=== PATIENT | female | born 1985 | race Hispanic/Latino ===

== ENCOUNTER 2022-07-20 12:47 | Emergency (ER) | payer MEDICAID ==
[2022-07-20 13:40] VITALS: BP 155/102
[2022-07-20 14:11] LABS: Basophils # (Auto) 0.1 K/mm3 (0.0-0.1); Basophils % (Auto) 1.1 % (0.0-1.8); Eosinophils # (Auto) 0.1 K/mm3 (0.0-0.4); Eosinophils % (Auto) 1.2 % (0.0-4.3); Hematocrit 37.8 % (30.3-42.9); Hemoglobin 12.4 gm/dl (10.1-14.3); Lymphocytes # (Auto) 2.5 K/mm3 (1.2-5.4); Mean Corpuscular HGB Conc 33 % (30-34); Mean Corpuscular Volume 91 fl (79-97); Monocytes # (Auto) 0.9 K/mm3 (0.0-0.8); Monocytes % (Auto) 7.9 % (0.0-7.3); Platelet Count 327 K/mm3 (140-440); Red Blood Count 4.15 M/mm3 (3.65-5.03); Red Cell Distribution Width 13.9 % (13.2-15.2)
[2022-07-20 14:28] LABS: Alanine Aminotransferase 9 units/L (7-56); Albumin 4.6 g/dL (3.9-5); Blood Urea Nitrogen 11 mg/dL (7-17); Calcium 9.6 mg/dL (8.4-10.2); Hemolysis Index 0
[2022-07-20 14:29] LABS: BUN/Creatinine Ratio 18
--- NOTE | 2022-07-20 17:04 | Ultrasound Report ---
ULTRASOUND RENAL INDICATION / CLINICAL INFORMATION: kidney stones. COMPARISON: None available. FINDINGS: RIGHT KIDNEY: Length = 10.3 cm. - Echogenicity: Normal. - Cortical Thickness: Normal. - Hydronephrosis: None. - Cyst / Mass: None. - Stones: None seen. LEFT KIDNEY: Length = 10.7 cm. - Echogenicity: Normal. - Cortical Thickness: Normal. - Hydronephrosis: None. - Cyst / Mass: None. - Stones: None seen. URINARY BLADDER: No significant abnormality. FREE FLUID: None. ADDITIONAL FINDINGS: None. IMPRESSION: 1. No significant abnormality. Signer Name: Yosi Ceja DO Signed: 07/20/2022 5:00 PM Workstation Name: [email or web address]
[2022-07-20] MEDS ORDERED: KETOROLAC 30 MG/1 ML INJ ONE (19:29)
[2022-07-20] MEDS ORDERED: KETOROLAC 30 MG/1 ML INJ IM ONE (19:42)
[2022-07-20] MEDS ORDERED: ONDANSETRON 4 MG/2 ML INJ IV ONE (23:41)
[2022-07-20] MEDS ORDERED: MORPHINE 4 MG/1 ML INJ IV ONE (23:41)
[2022-07-20] MEDS ORDERED: SODIUM CHLORIDE 0.9% 1000 ML 1,000 ML IV ONE (23:41)
[2022-07-21 01:15] LABS: Mucus,Urine 3+ /HPF
[2022-07-21 01:30] LABS: Color,Urine Yellow (Yellow)
[2022-07-21] MEDS ORDERED: KETOROLAC 30 MG/1 ML INJ IV ONE (05:26)
[2022-07-21] MEDS ORDERED: ONDANSETRON 4 MG/2 ML INJ IV ONE (05:26)
[2022-07-21] MEDS ORDERED: MORPHINE 4 MG/1 ML INJ IV ONE (05:26)
[2022-07-21] MEDS ORDERED: oxyCODONE /ACETAMINOPHEN 5-325MG TAB PO ONE (05:26)
[2022-07-21] MEDS ORDERED: levoFLOXacin 500 MG TAB PO ONE (05:28)
--- NOTE | 2022-07-21 05:49 | Emergency Department Report ---
ED Abdominal Pain HPI - General Chief Complaint: Abdominal Pain Stated Complaint: VOMITTING/KIDNEY STONES ISSUES Time Seen by Provider: 07/20/22 23:36 Source: patient Mode of arrival: Ambulatory Limitations: No Limitations - History of Present Illness Initial Comments: 37-year-old white female with no past medical history presents to the emergency department for evaluation of 1 week history of abdominal pain. She states that she is a [facility] patient and was seen at [facility] 2 or 3 days ago, had a ultrasound positive for gallstones, and was found to have kidney stones as well. She was discharged home with pain medication and made an appointment to follow-up with general surgery on this July 29. She states that she has been able to eat and drink at home, but EN makes her pain worse and the medication that she was given to treat pain has not helped effectively. She states that she has had some intermittent nausea and vomiting but denies fever, dysuria, diarrhea, or vaginal discharge. MD Complaint: abdominal pain -: Gradual, week(s) (1) Location: RUQ Radiation: none Migration to: no migration Severity scale (0 -10): 10 Quality: cramping, aching Associated Symptoms: nausea, vomiting. denies: diarrhea, fever, chills, dysuria , hematemesis, hematochezia, melena, hematuria, anorexia, syncope - Related Data LMP Date: 07/21/22 Previous Rx's Medication Instructions Recorded Last Taken Type Ciprofloxacin HCl [Ciprofloxacin 500 mg PO DAILY 3 Days #6 tab 07/21/22 Unknown Rx TAB] Ketorolac [Toradol] 10 mg PO Q6H PRN #12 tab 07/21/22 Unknown Rx Ondansetron [Zofran Odt] 4 mg PO Q8HR PRN #12 tab.rapdis 07/21/22 Unknown Rx Tramadol HCl/Acetaminophen 1 each PO Q6H PRN #12 tab 07/21/22 Unknown Rx [Ultracet Tablet] Allergies Allergy/AdvReac Type Severity Reaction Status Date / Time No Known Allergies Allergy Verified 07/20/22 19:57 ED Review of Systems ROS: Stated complaint: VOMITTING/KIDNEY STONES ISSUES Other details as noted in HPI Comment: All other systems reviewed and negative Constitutional: denies: chills, fever, malaise, weakness Respiratory: denies: shortness of breath Cardiovascular: denies: chest pain, palpitations Gastrointestinal: abdominal pain, nausea, vomiting. denies: diarrhea, hematemesis, melena, hematochezia Genitourinary: denies: urgency, dysuria, frequency, hematuria, discharge Musculoskeletal: back pain Neurological: denies: headache, weakness Psychiatric: denies: anxiety, depression, auditory hallucinations ED Past Medical Hx - Past Medical History Previous Medical History?: Yes Additional medical history: kidney stones - Medications Home Medications: Home Medications Medication Instructions Recorded Confirmed Last Taken Type Ciprofloxacin HCl [Ciprofloxacin 500 mg PO DAILY 3 Days #6 tab 07/21/22 Unknown Rx TAB] Ketorolac [Toradol] 10 mg PO Q6H PRN #12 tab 07/21/22 Unknown Rx Ondansetron [Zofran Odt] 4 mg PO Q8HR PRN #12 tab.rapdis 07/21/22 Unknown Rx Tramadol HCl/Acetaminophen 1 each PO Q6H PRN #12 tab 07/21/22 Unknown Rx [Ultracet Tablet] ED Physical Exam - General Limitations: No Limitations General appearance: alert, in no apparent distress - Head Head exam: Present: atraumatic, normocephalic - Eye Eye exam: Present: normal appearance. Absent: conjunctival injection, periorbital swelling, periorbital tenderness - ENT ENT exam: Present: normal exam, normal orophraynx - Neck Neck exam: Present: normal inspection, full ROM. Absent: tenderness, lymphadenopathy - Respiratory Respiratory exam: Present: normal lung sounds bilaterally. Absent: respiratory distress, wheezes, rales, rhonchi, stridor, chest wall tenderness - Cardiovascular Cardiovascular Exam: Present: regular rate, normal heart sounds - GI/Abdominal GI/Abdominal exam: Present: soft, tenderness (Right upper quadrant), normal bowel sounds. Absent: distended, guarding, rebound, rigid - Extremities Exam Extremities exam: Present: normal inspection, full ROM, normal capillary refill. Absent: tenderness, calf tenderness - Back Exam Back exam: Present: normal inspection. Absent: CVA tenderness (R), CVA tenderness (L) - Neurological Exam Neurological exam: Present: alert, oriented X3, CN II-XII intact, normal gait - Psychiatric Psychiatric exam: Present: normal affect, normal mood - Skin Skin exam: Present: warm, dry, intact, normal color ED Course Vital Signs 07/20/22 07/21/22 13:37 00:02 Temperature 98.7 F Pulse Rate 90 Respiratory 18 16 Rate Blood Pressure 155/102 [Left] O2 Sat by Pulse 99 Oximetry - Reevaluation(s) Reevaluation #1: 07/21/22 06:11 Patient was found to be resting comfortably in bed upon assessment. Discussed disposition with patient and she started to cry that she wanted to be admitted because she does not think that she can make it 2 days for her appointment with general surgery. She states that pain is little better. ED Medical Decision Making - Lab Data Result diagrams: 07/20/22 13:44 07/20/22 13:44 - Radiology Data Radiology results: report reviewed, image reviewed Renal ultrasound: FINDINGS: RIGHT KIDNEY: Length = 10.3 cm. - Echogenicity: Normal. - Cortical Thickness: Normal. - Hydronephrosis: None. - Cyst / Mass: None. - Stones: None seen. LEFT KIDNEY: Length = 10.7 cm. - Echogenicity: Normal. - Cortical Thickness: Normal. - Hydronephrosis: None. - Cyst / Mass: None. - Stones: None seen. URINARY BLADDER: No significant abnormality. FREE FLUID: None. ADDITIONAL FINDINGS: None. IMPRESSION: 1. No significant abnormality. CT abdomen and pelvis without contrast: Impression: 1. Abnormal appearance of the gallbladder. Gallstones as well as significant had density material, most likely representing sludge, is noted within the gallbladder lumen. Suggest further evaluation with gallbladder ultrasound to evaluate possibility of acute cholecystitis. 2. Left nephrolithiasis. Normal appearance of the right kidney. - Medical Decision Making 37-year-old white female with no past medical history presents to the emergency department for evaluation of 1 week history of abdominal pain. She states that she is a [facility] patient and was seen at [facility] 2 or 3 days ago, had a ultrasound positive for gallstones, and was found to have kidney stones as well. She was discharged home with pain medication and made an appointment to follow-up with general surgery on this July 29. She states that she has been able to eat and drink at home, but EN makes her pain worse and the medication that she was given to treat pain has not helped effectively. She states that she has had some intermittent nausea and vomiting but denies fever, dysuria, d iarrhea, or vaginal discharge. CT scan positive for gallstones with sludge. Will not pursue ultrasound at this time because patient had ultrasound 2 days ago at [facility] that was negative for acute cholecystitis. Patient noted to be afebrile. Urine positive for UTI. Patient be treated with 3-day course of Cipro and advised to follow-up with general surgery on tomorrow as planned and return to the emergency department if she develop fever or any worsening symptoms. She verbalizes understanding of and agreement with plan of care. Critical care attestation.: If time is entered above; I have spent that time in minutes in the direct care of this critically ill patient, excluding procedure time. ED Disposition Clinical Impression: Kidney stone Gallstone Qualifiers: Cholecystitis presence: without cholecystitis Biliary obstruction: without biliary obstruction Qualified Code(s): K80.20 - Calculus of gallbladder without cholecystitis without obstruction UTI (urinary tract infection) Qualifiers: Urinary tract infection type: acute cystitis Hematuria presence: without hematuria Qualified Code(s): N30.00 - Acute cystitis without hematuria Disposition: HOME / SELF CARE / HOMELESS Is pt being admited?: No Does the pt Need Aspirin: No Condition: Stable Instructions: Antibiotic Medicine, Adult, [id number], Kidney Stones, [id number], Cholelithiasis, [id number], Urinary Tract Infection, Adult, Lhfq-[id number], Abdominal Pain (ED) Additional Instructions: Take medications as prescribed. Follow-up with your surgeon as planned. Return to the emergency department immediately if you develop fever or as needed. Prescriptions: Ciprofloxacin HCl [Ciprofloxacin TAB] 500 mg PO DAILY 3 Days #6 tab Ketorolac [Toradol] 10 mg PO Q6H PRN #12 tab PRN Reason: Pain Tramadol HCl/Acetaminophen [Ultracet Tablet] 1 each PO Q6H PRN #12 tab PRN Reason: Pain, Moderate (4-6) Ondansetron [Zofran Odt] 4 mg PO Q8HR PRN #12 tab.rapdis PRN Reason: Nausea And Vomiting Referrals: DEBRA GUNTER MD [Primary Care Provider] - 3-5 Days MAXIM YANG DO [Staff Physician] - 3-5 Days Forms: Work/School Release Form(ED) Time of Disposition: 05:50
--- NOTE | 2022-07-22 08:15 | Cat Scan Report ---
CT abdomen pelvis wo con INDICATION / CLINICAL INFORMATION: r flank pain, ruq pain. TECHNIQUE: Axial CT imaging of abdomen and pelvis was obtained without contrast. Coronal and sagittal reformatte d imaging obtained and reviewed. All CT scans at this location are performed using CT dose reduction for ALARA by means of automated exposure control. COMPARISON: None available. FINDINGS: CT abdomen without contrast demonstrates normal appearance of the liver, spleen, pancreas, and adrena l glands. The gallbladder contains gallstones. There is high density material throughout the gallblad joe most likely indicating large amount of sludge. It is difficult to assess for gallbladder wall thi ckening. Gallbladder ultrasound is suggested for further evaluation of the gallbladder. There is a 2 mm nonobstructing calculus in the lower pole calyx of the left kidney. Right kidney is n ormal. Abdominal aorta is normal. CT pelvis without contrast does not demonstrate any mass, free fluid, or focal inflammatory change. A normal appendix is present in the right lower quadrant. The uterus and adnexa are unremarkable. GI t ract is normal. Visualized lung bases are clear. No significant acute osseous abnormality noted. IMPRESSION: 1. Abnormal appearance of the gallbladder. Gallstones as well as significant high density material, m ost likely representing sludge, is noted within the gallbladder lumen. Suggest further evaluation wit h gallbladder ultrasound to exclude possibility of acute cholecystitis. 2. Left nephrolithiasis. Normal appearance of the right kidney. Signer Name: Melissa Soto MD Signed: 07/21/2022 4:14 AM Workstation Name: [id number]
== END 2022-07-21 06:44 | disposition home or self-care (01) ==
LOC: ED 12:47
DX: N20.0 Calculus of kidney (principal); K80.20 Calculus of gallbladder without cholecystitis without obstruction; N39.0 Urinary tract infection, site not specified
CPT/HCPCS: 36415; 74176; 76770; 80053; 81001; 83690; 85025; 87086; 96361; 96372; 96374; 96375; 99284; J1885; J2270; J2405; J7030